=== PATIENT | female | born 1980 | race Caucasian/White ===

== ENCOUNTER 2018-09-25 09:45 | Emergency (ER) | payer OTHER ==
[~2018-09-25] VITALS: Ht 160 cm; Wt 56.7 kg
[2018-09-25] MEDS ORDERED: LEXAPRO 10 MG T10 M2 PO (09:56)
[2018-09-25] MEDS ORDERED: IRON325 PO (09:56)
[2018-09-25 10:12] LABS: ABSOLUTE LYMPHOCYTES 0.8 thou/uL (0.8-5.3); ABSOLUTE MONOCYTES 0.6 thou/uL (0.0-1.2); ABSOLUTE NEUTROPHILS 7.4 thou/uL (1.6-8.1); BASOPHILS 0.2 %; EOSINOPHILS 0.5 %; HEMATOCRIT 38.6 % (37.0-47.0); LYMPHOCYTES 8.5 %; MCH 31.2 pg (26.0-34.0); MCHC 33.8 g/dL (28.0-37.0); MCV 92.2 fL (80.0-100.0); MONOCYTES 7.2 %; MPV 8.2 fl. (7.2-11.1); NUCLEATED RBCS 0 /100WBC; PLATELET COUNT* 229 thou/uL (150-400); POLYS 83.6 %; RBC 4.19 mil/uL (4.20-5.00); RDW-CV 12.3 % (10.5-14.5); WBC 8.9 thou/uL (4.0-11.0)
[2018-09-25 10:30] LABS: ALBUMIN 4.1 g/dL (3.4-5.0); ALKALINE PHOSPHATASE 27 U/L (46-116); ANION GAP 7 mmol/L (7-16); BUN 14 mg/dL (7-18); CALCIUM 8.6 mg/dL (8.5-10.1); CHLORIDE 102 mmol/L (98-107); CO2 31 mmol/L (21-32); CREATININE 0.7 mg/dL (0.6-1.3); GLUCOSE 103 mg/dL (70-99); LIPASE 109 U/L (73-393); SGOT 10 U/L (15-37); SGPT 20 U/L (30-65); SODIUM 140 mmol/L (136-145); TOTAL BILIRUBIN 1.6 mg/dL (<0.1-1.0); TOTAL PROTEIN 7.5 g/dL (6.4-8.2); TROPONIN-I LEVEL <0.06 ng/mL (<0.06)
[2018-09-25 10:31] LABS: PROTIME 10.4 Seconds (9.20-11.50)
[2018-09-25 12:51] LABS: URINE BILIRUBIN NEGATIVE (Negative); URINE BLOOD NEGATIVE (Negative); URINE CLARITY CLEAR; URINE COLOR YELLOW; URINE GLUCOSE-RANDOM NEGATIVE (Negative); URINE KETONES NEGATIVE (Negative); URINE LEUKOCYTES-REFLEX NEGATIVE (Negative); URINE NITRITE-REFLEX NEGATIVE (Negative); URINE PROTEIN NEGATIVE (Negative); URINE UROBILINOGEN 0.2 E.U./dl (0.2-1.0)
[2018-09-25 13:00] LABS: AMP/METHAMP Negative (Negative); BARBITURATES Negative (Negative); BENZODIAZEPINES Negative (Negative); COCAINE Negative (Negative); METHADONE Negative (Negative); OPIATES Negative (Negative); PCP Negative (Negative); THC Negative (Negative)
[2018-09-25] MEDS ORDERED: OMEPRAZOLE20 M2 PO (13:47)
[2018-09-25] MEDS ORDERED: TORADOL 10 MG T10 MG PO (13:47)
[2018-09-25] MEDS ORDERED: CARAFATE 1 GM TA1 GM PO (13:47)
[2018-09-25 14:01] VITALS: BP 109/69
--- NOTE | 2018-09-25 14:02 | EKG ---
[place] [address] ELECTROCARDIOGRAM REPORT Name: ALEJANDRA DWYER Room: [facility]#: [id number] Admission: 09/25/18 Attend Phys: Discharge: Date of : 84 Report #: [id number] THIS REPORT FOR: //name// [facility] ED Test Date: 2018-09-25 Test Time: 09:50:45 Pat Name: ALEJANDRA DWYER Department: Room: Gender: F [employer]: : 1980 Requested By: Olga Rose Order Number: [id number] MD: Cain Aldana Measurements Intervals [place] Rate: 80 P: 67 ND: 133 QRS: 52 QRSD: 108 T: 47 QT: 397 QTc: 458 Interpretive Statements Sinus rhythm RSR' in V1 or V2, right VCD or RVH No previous ECG available for comparison Electronically Signed On 09-25-2018 14:01:53 CDT by Cain Aldana [email or web address] <ELECTRONICALLY SIGNED> By: Cain Aldana MD, [facility] 09/25/18 1401 0950 0950 Cain Aldana MD, FACC /EPI
== END 2018-09-25 14:01 | disposition home or self-care (01) ==
LOC: M.ERS 09:45
PROVIDERS: Personal Emergency Response Attendant
DX: K21.9 Gastro-esophageal reflux disease without esophagitis (principal); F32.9 Major depressive disorder, single episode, unspecified; F41.9 Anxiety disorder, unspecified; Z88.1 Allergy status to other antibiotic agents; Z86.2 Personal history of diseases of the blood and blood-forming organs and certain disorders involving the immune mechanism